=== PATIENT | male | born 1970 | race Caucasian/White ===

== ENCOUNTER 2017-10-12 12:43 | Emergency (ER) | payer OTHER ==
[~2017-10-12] VITALS: Ht 177.8 cm; Wt 85.3 kg
[~2017-10-12 12:43] MED LIST: AUGMENTIN 875 M1 TAB PO; BACTRIM DS 8001 TA1 PO; CLINDAMYCIN HC300 MG PO; DAYPRO600 M1 PO; Fioricet 325 MG1 TAB PO; HYDROCODONE BIT1 T11 PO; KEFLEX500 MG PO; MEDROL DOSEPAK4 MG PO; Motrin,Rufen800 MG PO; NORCO 5-325 TA1 EACH PO; ROBAXIN750 MG PO; TRAMADOL HCL50 MG PO; VICODIN 500 MG-1 TAB PO
[2017-10-12] MEDS ORDERED: AUGMENTIN 875-875 MG PO (21:26)
== END 2017-10-12 12:49 | disposition home or self-care (01) ==
LOC: ED 12:43
DX: S51.851A Open bite of right forearm, initial encounter (principal); W50.3XXA Accidental bite by another person, initial encounter; Y93.89 Activity, other specified; Y92.89 Other specified places as the place of occurrence of the external cause; Y99.9 Unspecified external cause status

== ENCOUNTER 2017-10-12 21:01 | Emergency (ER) | payer OTHER ==
[~2017-10-12] VITALS: Ht 177.8 cm; Wt 85.3 kg
[2017-10-12] MEDS ORDERED: AUGMENTIN 875-875 MG PO (21:26)
[2017-10-14 07:09] LABS: HEPATITIS B SURFACE AG Negative (Negative); HEPATITIS C VIRUS ANTIBODY <0.1 s/co (0.0-0.9)
[2017-10-14 09:06] LABS: HIV 1+2 AB + HIV1 P24 AG Non Reactive (Non Reactive)
== END 2017-10-12 21:40 | disposition home or self-care (01) ==
LOC: ED 21:01
PROVIDERS: Student in an Organized Health Care Education/Training Program
DX: S51.851A Open bite of right forearm, initial encounter (principal); W50.3XXA Accidental bite by another person, initial encounter; Y93.89 Activity, other specified; Y92.89 Other specified places as the place of occurrence of the external cause; Y99.9 Unspecified external cause status

== ENCOUNTER 2018-05-05 12:15 | Emergency (ER) | payer OTHER ==
[~2018-05-05] VITALS: Ht 154.9 cm; Wt 87.1 kg
[~2018-05-05 12:15] MED LIST changes: +AUGMENTIN 875-875 MG PO
[2018-05-05] MEDS ORDERED: ACULAR 0.5%3 ML OPH (13:06)
== END 2018-05-05 13:13 | disposition home or self-care (01) ==
LOC: ED 12:15
DX: H57.89 Other specified disorders of eye and adnexa (principal); H57.13 Ocular pain, bilateral; H53.8 Other visual disturbances; X03.8XXA Other exposure to controlled fire, not in building or structure, initial encounter; Y93.89 Activity, other specified; Y92.89 Other specified places as the place of occurrence of the external cause; Y99.8 Other external cause status

== ENCOUNTER 2018-11-03 12:33 | Emergency (ER) | payer OTHER ==
[~2018-11-03] VITALS: Wt 87.1 kg
[~2018-11-03 12:33] MED LIST changes: +ACULAR 0.5%3 ML OPH
[2018-11-03] MEDS ORDERED: LIDEX 0.05% CRE15 GM T (12:50)
[2018-11-03] MEDS ORDERED: PREDNISONE20 M1 PO (12:50)
[2018-11-08] MEDS ORDERED: ALA-CORT28.4 GM T (22:05)
== END 2018-11-03 12:57 | disposition home or self-care (01) ==
LOC: ED 12:33
DX: L25.9 Unspecified contact dermatitis, unspecified cause (principal); Z79.2 Long term (current) use of antibiotics; Z79.899 Other long term (current) drug therapy

== ENCOUNTER 2019-02-10 15:53 | Inpatient (IN) | payer OTHER ==
[~2019-02-10] VITALS: Ht 180.3 cm; Wt 88.5 kg
[2019-02-10 15:53] VITALS: BP 138/71
[~2019-02-10 15:53] MED LIST changes: +ALA-CORT28.4 GM T; +LIDEX 0.05% CRE15 GM T; +PREDNISONE20 M1 PO
[2019-02-10 17:23] LABS: BILIRUBIN NEGATIVE (NEGATIVE); BLOOD NEGATIVE (NEGATIVE); CLARITY CLEAR (CLEAR); COLOR YELLOW (YELLOW); GLUCOSE NEGATIVE (NEGATIVE); KETONE NEGATIVE (NEGATIVE); LEUKO ESTERASE NEGATIVE (NEGATIVE); NITRITE NEGATIVE (NEGATIVE); SPECIFIC GRAVITY 1.025 (1.005-1.030); UROBILINOGEN 0.2 E.U./dl (0.2-1.0)
[2019-02-10 17:26] LABS: BASO % 0.1 % (0.0-1.0); EOS % 0.1 % (1.0-4.0); HEMOGLOBIN 16.8 g/dl (14.0-18.0); LYMPH # 2.4 10*3/uL (1.3-4.4); LYMPH % 15.2 % (27.0-41.0); MEAN CELL VOLUME 91.4 fl (80.0-94.0); MEAN CORPUSCULAR HGB 30.7 pg (27.0-31.0); MEAN CORPUSCULAR HGB CONC 33.6 g/dl (33.0-37.0); MEAN PLATELET VOLUME 10.9 fl (9.6-12.3); MONO # 1.1 10*3/uL (0.1-1.0); MONO % 6.8 % (3.0-9.0); NEUT # 12.1 10*3/uL (2.3-7.9); NEUT % 77.2 % (47.0-73.0); PLATELET COUNT AUTOMATED 338 10*3/uL (130-400); RED BLOOD COUNT 5.47 10*6/uL (4.50-5.90); RED CELL DISTRI WIDTH 12.6 % (0-14.5); WHITE BLOOD COUNT 15.7 10*3/uL (4.8-10.8)
[2019-02-10 17:29] LABS: ACT PARTIAL THROMBO TIME 25.6 SECONDS (20.0-32.1); INTERNATIONAL NORM RATIO 0.9 (2.0-3.5)
--- NOTE | 2019-02-10 17:30 | NUR ---
PT STATES THAT THE MEDICATION HAS IMPROVED HIS PAIN SLIGHTLY AT THIS TIME. BED IS IN LOW POSITION. WILL CONTINUE TO MONITOR.
[2019-02-10 17:34] LABS: ALBUMIN 3.9 gm/dl (3.1-4.5); ALKALINE PHOSPHATASE 74 U/L (45-117); BUN 18 mg/dl (7-24); CHLORIDE 110 mmol/L (98-107); CREATININE 0.96 mg/dL (0.70-1.30); SGOT/AST 12 IU/L (3-35); SGPT/ALT 24 U/L (12-78); SODIUM 140 mmol/L (136-145); TOTAL PROTEIN 7.3 gm/dL (6.4-8.2)
[2019-02-10 17:48] LABS: LIPASE 1803 U/L (73-393); TROPONIN I < 0.015 ng/ml (<0.045)
[2019-02-10 17:51] VITALS: BP 118/64
--- NOTE | 2019-02-10 17:51 | NUR ---
PT VS ARE STABLE AT THIS TIME. THE MEDICATION HAS TAKEN THE "EDGE" AWAY. PT IS DRINKING FOR HIS CT. BED IS IN LOW POSITION. CALL ALBA WITHIN REACH. WILL CONTINUE TO MONITOR.
[2019-02-10 17:53] LABS: BACTERIA TRACE; MUCOUS 2+; WBC 0-2 wbc/hpf (0-5)
--- NOTE | 2019-02-10 18:47 | NUR ---
PT STATES THAT HE IS FEELING IMPROVED AT THIS TIME. WE ARE WAITING FOR PT TO GO TO CT.
--- NOTE | 2019-02-10 19:18 | NUR ---
PT TO CT AT THIS TIME.
[2019-02-10 20:24] VITALS: BP 126/55
--- NOTE | 2019-02-10 20:28 | NUR ---
PT RESTING IN BED UNDER WARM BLANKET. NO COMPLAINTS AT THIS TIME. BED IN LOW POSITION CALL ALBA IS WITHIN REACH. SIDE RAILS UP. WILL CONTINUE TO MONITOR. PENDING CT RESULTS.
[2019-02-10 21:12] VITALS: BP 144/76
--- NOTE | 2019-02-10 21:12 | NUR ---
A 48, admitted to 5E, under the services of JORDAN Ovalles MD with a diagnosis of PANCREATITIS. Chief complaint is N/V, EPIGASTRIC PAIN. Patient arrived via stretcher from ER. Monitor applied. Initial assessment completed. Vital signs taken and recorded. JORDAN OVALLES MD notified of admission to the unit. Orders received. See assessment for past medical history, medications and allergies. Patient and/or family oriented to unit. Clothing/patient valuable form completed. ALONZO COLLINS
--- NOTE | 2019-02-10 23:05 | NUR ---
PATIENT STATES PRESCRIBED MEDS FOR BIPOLAR DISORDER BUT DOES NOT TAKE THEM. DENIES ANY OTHER HOME MEDICATIONS.
--- NOTE | 2019-02-10 23:05 | NUR ---
FLU VACCINE REC'D ON THIS DATE.
[2019-02-11] VITALS: BP 103/69
--- NOTE | 2019-02-11 02:00 | NUR ---
PATIENT RESTING ON BACK, DENIES NEEDS AT THIS TIME. PAIN IS MANAGED, DENIES ANY N/V. IVF INFUSING PER ORDERS. BED IN LOWEST LOCKED POS, CALL LIGHT WITHIN REACH, SIDE RAILS UP X2.
[2019-02-11 06:38] LABS: BASO % 0.1 % (0.0-1.0); HEMATOCRIT 48.2 % (42.0-52.0); HEMOGLOBIN 15.7 g/dl (14.0-18.0); LYMPH % 17.9 % (27.0-41.0); MEAN CORPUSCULAR HGB 31.2 pg (27.0-31.0); MEAN CORPUSCULAR HGB CONC 32.6 g/dl (33.0-37.0); MEAN PLATELET VOLUME 11.2 fl (9.6-12.3); MONO # 1.2 10*3/uL (0.1-1.0); MONO % 6.9 % (3.0-9.0); NEUT # 12.5 10*3/uL (2.3-7.9); NEUT % 74.5 % (47.0-73.0); PLATELET COUNT AUTOMATED 309 10*3/uL (130-400); RED BLOOD COUNT 5.04 10*6/uL (4.50-5.90); WHITE BLOOD COUNT 16.8 10*3/uL (4.8-10.8)
[2019-02-11 06:50] LABS: ALBUMIN 3.6 gm/dl (3.1-4.5); BUN 14 mg/dl (7-24); CHLORIDE 109 mmol/L (98-107); CREATININE 0.82 mg/dL (0.70-1.30); LIPASE 931 U/L (73-393); POTASSIUM 4.3 mmol/L (3.5-5.1); SGOT/AST 8 IU/L (3-35); SGPT/ALT 22 U/L (12-78); SODIUM 140 mmol/L (136-145)
[2019-02-11 06:54] LABS: ALKALINE PHOSPHATASE 69 U/L (45-117); CHOLESTEROL 170 mg/dL (<200); HDL CHOLESTEROL 31 mg/dl (40-60); LDL CHOLESTEROL 106 mg/dL (9-159); PHOSPHOROUS 3.5 mg/dL (2.5-4.9); TOTAL PROTEIN 6.6 gm/dL (6.4-8.2); TRIGLYCERIDES 165 mg/dl (<150); VLDL CHOLESTEROL 33 mg/dL (6-40)
[2019-02-11 06:59] LABS: MEAN CELL VOLUME 95.6 fl (80.0-94.0)
[2019-02-11 08:00] VITALS: BP 100/62
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
--- NOTE | 2019-02-11 09:53 | NUR ---
ATTEMPTED TO CALL DR. LEONARD FOR NOTIFICATION OF CONSULT. NO ANSWER LEFT MESSAGE ON DR. LEONARD CELL THAT HE HAD A NEW CONSULT, ASKED HIM TO CALL 5E TO OBTAIN DETAILS OF CONSULT. NO SENSITIVE INFORMATION WAS LEFT ON MESSAGE JUST THAT THERE WAS A NEW CONSULT. JORGE NIX
--- NOTE | 2019-02-11 12:30 | NUR ---
Dr. Francois notified of consult.
--- NOTE | 2019-02-11 15:48 | NUR ---
Pt medicated with morphine for abdominal cramping and pain. Medicated with zofran iv per prn order for complaints of nausea.
[2019-02-11 16:00] VITALS: BP 115/72
--- NOTE | 2019-02-11 16:45 | NUR ---
States that medication was effective.
--- NOTE | 2019-02-11 18:35 | NUR ---
Dr. Francois in and examined pt. Explained again to pt that due to elevated lipase that he is not allowed to have anything at this time to eat or drink. Explained to pt that this is treatment and that he is also receiving ivf. Notified that pt will have labs rechecked in AM and that they will go from there. Pt verbalized understanding. Pt also c/o testicular pain. States he was treated in past for this by Dr. Babcock. Dr. Francois examined pt for this as well. States to order testicular us to r/o hydrocele.
[2019-02-11 20:00] VITALS: BP 117/65
[2019-02-12] VITALS: BP 109/62
[2019-02-12 06:24] LABS: BASO % 0.1 % (0.0-1.0); EOS % 0.1 % (1.0-4.0); HEMATOCRIT 45.4 % (42.0-52.0); HEMOGLOBIN 15.2 g/dl (14.0-18.0); LYMPH # 2.8 10*3/uL (1.3-4.4); MEAN CORPUSCULAR HGB 31.8 pg (27.0-31.0); MEAN CORPUSCULAR HGB CONC 33.5 g/dl (33.0-37.0); MONO % 7.2 % (3.0-9.0); NEUT # 9.5 10*3/uL (2.3-7.9); NEUT % 71.2 % (47.0-73.0); PLATELET COUNT AUTOMATED 264 10*3/uL (130-400); RED BLOOD COUNT 4.78 10*6/uL (4.50-5.90); RED CELL DISTRI WIDTH 12.6 % (0-14.5); WHITE BLOOD COUNT 13.4 10*3/uL (4.8-10.8)
[2019-02-12 06:47] LABS: ALBUMIN 3.4 gm/dl (3.1-4.5); ALKALINE PHOSPHATASE 62 U/L (45-117); BUN 17 mg/dl (7-24); CHLORIDE 111 mmol/L (98-107); CREATININE 0.79 mg/dL (0.70-1.30); LIPASE 80 U/L (73-393); POTASSIUM 4.2 mmol/L (3.5-5.1); SGOT/AST 5 IU/L (3-35); SGPT/ALT 20 U/L (12-78); SODIUM 141 mmol/L (136-145); TOTAL PROTEIN 6.4 gm/dL (6.4-8.2)
[2019-02-12 12:00] VITALS: BP 120/67
--- NOTE | 2019-02-12 12:35 | NUR ---
States that morphine and zofran given earlier was effective.
[2019-02-12 16:00] VITALS: BP 113/62
--- NOTE | 2019-02-12 16:09 | NUR ---
Pt c/o heartburn and indigestion after clear liquids. Denies nausea or pain at this time. Asking if the Dr will be in today.
--- NOTE | 2019-02-12 16:13 | NUR ---
Notified Dr. Mohamud of pt c/o indigestion and heart burn after clear liquids. Order received for protonix iv. Pt had also asked if Dr. Mohamud would be in to see him today. I notified Dr. Mohamud of this and Dr. Mohamud states he will be in later this evening.
--- NOTE | 2019-02-12 16:32 | NUR ---
Notified pt of new orders for protonix and given at this time. Notified pt that Dr. Mohamud stated to me that he will be in later this evening.
--- NOTE | 2019-02-12 17:12 | NUR ---
Pt up ambulatory in hallways.
--- NOTE | 2019-02-12 18:43 | NUR ---
IVF rate decreased to 100 cc/hr.
[2019-02-12 20:00] VITALS: BP 118/79; BP 120/78
[2019-02-13] VITALS: BP 127/71
--- NOTE | 2019-02-13 01:50 | NUR ---
PATIENT CALLED OUT. IV LEAKING. IV IN RIGHT AC DISCONTINUED.
--- NOTE | 2019-02-13 02:00 | NUR ---
IV started left forearm with #22 protective cath after 1 attempts. Site prepped with Chloroprep. Sterile dressing applied. Patient tolerated procedure well. IV infusing at 10O cc/hr. HEMALATHA MOSQUERA
--- NOTE | 2019-02-13 02:25 | NUR ---
IV IN RIGHT ARM INFILTRATED. REMOVED AND RESTARTED.
--- NOTE | 2019-02-13 02:33 | NUR ---
24 HR chart check completed.
[2019-02-13 06:51] LABS: BASO % 0.2 % (0.0-1.0); EOS % 0.1 % (1.0-4.0); HEMATOCRIT 46.4 % (42.0-52.0); HEMOGLOBIN 15.6 g/dl (14.0-18.0); LYMPH # 2.9 10*3/uL (1.3-4.4); LYMPH % 21.2 % (27.0-41.0); MEAN CELL VOLUME 93.4 fl (80.0-94.0); MEAN CORPUSCULAR HGB 31.4 pg (27.0-31.0); MEAN CORPUSCULAR HGB CONC 33.6 g/dl (33.0-37.0); MEAN PLATELET VOLUME 11.4 fl (9.6-12.3); MONO # 1.3 10*3/uL (0.1-1.0); MONO % 9.1 % (3.0-9.0); NEUT # 9.6 10*3/uL (2.3-7.9); NEUT % 68.9 % (47.0-73.0); PLATELET COUNT AUTOMATED 288 10*3/uL (130-400); RED BLOOD COUNT 4.97 10*6/uL (4.50-5.90); RED CELL DISTRI WIDTH 12.4 % (0-14.5); WHITE BLOOD COUNT 13.9 10*3/uL (4.8-10.8)
[2019-02-13 07:00] LABS: ALBUMIN 3.6 gm/dl (3.1-4.5); ALKALINE PHOSPHATASE 67 U/L (45-117); BUN 16 mg/dl (7-24); CHLORIDE 109 mmol/L (98-107); CREATININE 0.89 mg/dL (0.70-1.30); POTASSIUM 3.9 mmol/L (3.5-5.1); SGOT/AST 20 IU/L (3-35); SGPT/ALT 40 U/L (12-78); SODIUM 139 mmol/L (136-145); TOTAL PROTEIN 6.8 gm/dL (6.4-8.2)
--- NOTE | 2019-02-13 08:00 | NUR ---
PT SITTING UP IN BED. RESP-EASY AND REGULAR. NO C/O AT THIS TIME. IVF INFUSING WITH NO PROBLEM. CALL LIGHT IN REACH. SEE SHIFT ASSESSMENT.
--- NOTE | 2019-02-13 08:30 | NUR ---
DR. BELLO ON FLOOR TO SEE PT. AWARE PT ORTHOSTATIC BP THAT WAS POSITIVE. PT C/O DIZZINESS WITH MOVEMENT. CALL LIGHT IN REACH.
--- NOTE | 2019-02-13 11:42 | NUR ---
CALLED DR. GUAMAN, PT REQUESTING NICOTROL INHALER AND ALSO WANTING TO HAVE REGULAR DIET. TOLERATED FULL LIQUID WITH NO PROBLEM. ORDERS TAKEN AND REVIEWED.
[2019-02-13 12:00] VITALS: BP 120/71
[2019-02-13] MEDS ORDERED: PROTONIX40 M1 IV (13:03)
--- NOTE | 2019-02-13 13:25 | NUR ---
CALLED DR. GUAAMN MADE AWARE PROTONIX RX THAT WENT TO PHARMACY WAS IV. HE STATES HE TALKED WITH PHARMACY ALREADY AND TOOK CARE OF IT.
--- NOTE | 2019-02-13 13:36 | NUR ---
Discharge instructions reviewed with patient/family. Patient receptive and verbalizes understanding. Follow-up care arranged. Written instructions given to patient/family. HEPLOCK REMOVED 2X2 APPLIED. HOLTER MONITOR REMOVED. PT AMBULATORY OFF THE FLOOR FOR DISCHARGE. SERENA RING
== END 2019-02-13 13:45 | disposition home or self-care (01) | DRG 282 ==
LOC: ED 15:53 → 5E 20:37 → EDHOLD 20:37 → 5E 21:01
PROVIDERS: Internal Medicine; Nurse Practitioner Family; ADMIT Internal Medicine
DX: K85.90 Acute pancreatitis without necrosis or infection, unspecified (principal); F41.9 Anxiety disorder, unspecified; D72.829 Elevated white blood cell count, unspecified; E78.1 Pure hyperglyceridemia; E83.41 Hypermagnesemia; F31.9 Bipolar disorder, unspecified; E87.8 Other disorders of electrolyte and fluid balance, not elsewhere classified; N50.819 Testicular pain, unspecified; R00.1 Bradycardia, unspecified; F17.200 Nicotine dependence, unspecified, uncomplicated; Z83.3 Family history of diabetes mellitus; Z71.6 Tobacco abuse counseling

== ENCOUNTER → 2019-05-05 | Outpatient (CLI) | payer OTHER ==
[~2019-05-05] MED LIST changes: +PROTONIX40 M1 IV
== END | disposition home or self-care (01) ==
LOC: US 10:23
DX: K76.0 Fatty (change of) liver, not elsewhere classified (principal)

== ENCOUNTER 2019-06-09 12:53 | Emergency (ER) | payer OTHER ==
[~2019-06-09] VITALS: Ht 177.8 cm; Wt 89.8 kg
[2019-06-09 14:15] LABS: HEMATOCRIT 51.1 % (42.0-52.0); HEMOGLOBIN 17.1 g/dl (14.0-18.0); MEAN CELL VOLUME 93.9 fl (80.0-94.0); MEAN CORPUSCULAR HGB 31.4 pg (27.0-31.0); MEAN CORPUSCULAR HGB CONC 33.5 g/dl (33.0-37.0); PLATELET COUNT AUTOMATED 264 10*3/uL (130-400); RED BLOOD COUNT 5.44 10*6/uL (4.50-5.90); RED CELL DISTRI WIDTH 12.5 % (0-14.5); WHITE BLOOD COUNT 11.2 10*3/uL (4.8-10.8)
[2019-06-09 14:26] LABS: ACT PARTIAL THROMBO TIME 28.5 SECONDS (20.0-32.1); INTERNATIONAL NORM RATIO 0.9 (2.0-3.5)
[2019-06-09 14:30] LABS: ALBUMIN 4.2 gm/dl (3.1-4.5); ALKALINE PHOSPHATASE 101 U/L (45-117); BUN 9 mg/dl (7-24); CHLORIDE 106 mmol/L (98-107); CREATININE 0.98 mg/dL (0.70-1.30); LIPASE 138 U/L (73-393); POTASSIUM 3.7 mmol/L (3.5-5.1); SGOT/AST 11 IU/L (3-35); SGPT/ALT 23 U/L (12-78); SODIUM 139 mmol/L (136-145); TOTAL PROTEIN 7.8 gm/dL (6.4-8.2)
[2019-06-09 14:31] LABS: TROPONIN I < 0.015 ng/ml (<0.045)
[2019-06-09 14:35] LABS: BASOPHILS 1 % (0-1); PLATELET SUFFICIENCY NORMAL (NORMAL); TOTAL CELLS COUNTED 100 #CELLS
[2019-06-09 14:36] LABS: BURR CELLS FEW
[2019-06-09 16:12] LABS: BILIRUBIN NEGATIVE (NEGATIVE); BLOOD NEGATIVE (NEGATIVE); CLARITY CLEAR (CLEAR); COLOR YELLOW (YELLOW); GLUCOSE NEGATIVE (NEGATIVE); KETONE NEGATIVE (NEGATIVE); LEUKO ESTERASE NEGATIVE (NEGATIVE); NITRITE NEGATIVE (NEGATIVE); SPECIFIC GRAVITY 1.005 (1.005-1.030); UROBILINOGEN 0.2 E.U./dl (0.2-1.0)
[2019-06-09 16:13] LABS: EPITHELIAL CELLS 0-2
[2019-06-09] MEDS ORDERED: PREDNISONE50 MG PO (16:35)
[2019-06-09] MEDS ORDERED: PROVENTIL HFA6.7 GM INH (16:35)
[2019-06-09] MEDS ORDERED: MUCINEX1200 M1 PO (16:35)
[2019-06-09] MEDS ORDERED: TESSALON PERLE100 MG PO (16:35)
[2019-06-09] MEDS ORDERED: DOXYCYCLINE100 M3 PO (16:35)
== END 2019-06-09 16:42 | disposition home or self-care (01) ==
LOC: ED 12:53
PROVIDERS: Nurse Practitioner Family
DX: J20.9 Acute bronchitis, unspecified (principal); R11.2 Nausea with vomiting, unspecified; F17.200 Nicotine dependence, unspecified, uncomplicated

== ENCOUNTER 2019-06-13 19:43 | Emergency (ER) | payer OTHER ==
[~2019-06-13] VITALS: Ht 182.8 cm; Wt 86.2 kg
[~2019-06-13 19:43] MED LIST changes: +DOXYCYCLINE100 M3 PO; +MUCINEX1200 M1 PO; +PREDNISONE50 MG PO; +PROVENTIL HFA6.7 GM INH; +TESSALON PERLE100 MG PO
[2019-06-13] MEDS ORDERED: PREDNISONE20 M1 PO (20:10)
[2019-06-13] MEDS ORDERED: CEPHALEXIN500 M1 PO (20:10)
== END 2019-06-13 20:28 | disposition home or self-care (01) ==
LOC: ED 19:43
DX: L23.7 Allergic contact dermatitis due to plants, except food (principal)

== ENCOUNTER 2019-06-19 10:43 | Emergency (ER) | payer OTHER ==
[~2019-06-19] VITALS: Ht 180.3 cm; Wt 86.2 kg
[~2019-06-19 10:43] MED LIST changes: +CEPHALEXIN500 M1 PO
[2019-06-19] MEDS ORDERED: PREDNISONE10 MG PO (11:28)
== END 2019-06-19 11:48 | disposition home or self-care (01) ==
LOC: ED 10:43
DX: L23.9 Allergic contact dermatitis, unspecified cause (principal); Z79.2 Long term (current) use of antibiotics; Z79.899 Other long term (current) drug therapy

== ENCOUNTER 2019-09-29 18:29 | Emergency (ER) | payer OTHER ==
[~2019-09-29] VITALS: Ht 180.3 cm; Wt 81.6 kg
[~2019-09-29 18:29] MED LIST changes: +PREDNISONE10 MG PO
[2019-09-29 19:04] LABS: BASO # 0.1 10*3/uL (0.0-0.1); EOS # 0.2 10*3/uL (0.0-0.4); HEMATOCRIT 48.2 % (42.0-52.0); LYMPH # 4.5 10*3/uL (1.3-4.4); LYMPH % 38.9 % (27.0-41.0); MEAN CELL VOLUME 92.9 fl (80.0-94.0); MEAN CORPUSCULAR HGB 30.8 pg (27.0-31.0); MEAN CORPUSCULAR HGB CONC 33.2 g/dl (33.0-37.0); MEAN PLATELET VOLUME 10.7 fl (9.6-12.3); MONO % 8.5 % (3.0-9.0); NEUT # 5.7 10*3/uL (2.3-7.9); NEUT % 49.4 % (47.0-73.0); PLATELET COUNT AUTOMATED 310 10*3/uL (130-400); RED BLOOD COUNT 5.19 10*6/uL (4.50-5.90); RED CELL DISTRI WIDTH 12.6 % (0-14.5); WHITE BLOOD COUNT 11.5 10*3/uL (4.8-10.8)
[2019-09-29 19:19] LABS: ALBUMIN 3.9 gm/dl (3.1-4.5); ALKALINE PHOSPHATASE 86 U/L (45-117); BUN 15 mg/dl (7-24); CHLORIDE 108 mmol/L (98-107); LIPASE 71 U/L (73-393); POTASSIUM 3.7 mmol/L (3.5-5.1); SGOT/AST 14 IU/L (3-35); SGPT/ALT 24 U/L (12-78); SODIUM 140 mmol/L (136-145); TOTAL PROTEIN 7.3 gm/dL (6.4-8.2)
[2019-09-29 19:23] LABS: ETHYL ALCOHOL < 3.0 mg/dl (<3); TROPONIN I < 0.015 ng/ml (<0.045)
[2019-09-29 20:12] LABS: URINE AMPHETAMINES < 1000 (1000ng/ml); URINE BARBITURATES < 200 (200ng/ml); URINE BENZODIAZEPINES < 200 (200ng/ml); URINE CANNABINOIDS (THC) > 50 (50ng/ml); URINE COCAINE < 300 (300ng/ml); URINE METHADONE < 300 (300ng/ml); URINE OPIATES < 300 (300ng/ml)
[2019-09-29 20:14] LABS: URINE PHENCYCLIDINE < 25 (25ng/ml)
[2019-09-29] MEDS ORDERED: ACID REDUCER20 MG PO (22:18)
== END 2019-09-29 22:20 | disposition home or self-care (01) ==
LOC: ED 18:29
PROVIDERS: Physician Assistant
DX: J03.90 Acute tonsillitis, unspecified (principal); R10.13 Epigastric pain; R11.10 Vomiting, unspecified; F17.200 Nicotine dependence, unspecified, uncomplicated

== ENCOUNTER 2019-10-17 12:08 | Emergency (ER) | payer OTHER ==
[~2019-10-17] VITALS: Wt 86.2 kg
[~2019-10-17 12:08] MED LIST changes: +ACID REDUCER20 MG PO
[2019-10-17] MEDS ORDERED: PERCOCET 5-3251 EACH PO (14:52)
[2019-10-17] MEDS ORDERED: CYCLOBENZAPRINE10 MG PO (14:52)
[2019-10-17] MEDS ORDERED: PREDNISONE20 M1 PO (14:52)
[2019-10-17] MEDS ORDERED: IBU800 MG PO (14:52)
== END 2019-10-17 14:58 | disposition home or self-care (01) ==
LOC: ED 12:08
DX: S39.012A Strain of muscle, fascia and tendon of lower back, initial encounter (principal); M54.42 Lumbago with sciatica, left side; Z87.891 Personal history of nicotine dependence; X50.9XXA Other and unspecified overexertion or strenuous movements or postures, initial encounter; Y93.89 Activity, other specified; Y92.89 Other specified places as the place of occurrence of the external cause; Y99.8 Other external cause status

== ENCOUNTER 2020-01-12 17:32 | Emergency (ER) | payer OTHER ==
[~2020-01-12] VITALS: Ht 180.3 cm; Wt 90.7 kg
[~2020-01-12 17:32] MED LIST changes: +CYCLOBENZAPRINE10 MG PO; +IBU800 MG PO; +PERCOCET 5-3251 EACH PO
[2020-01-12] MEDS ORDERED: IBU800 MG PO (17:52)
[2020-01-12] MEDS ORDERED: AMOXICILLIN500 M3 PO (17:52)
== END 2020-01-12 18:02 | disposition home or self-care (01) ==
LOC: ED 17:32
DX: I88.9 Nonspecific lymphadenitis, unspecified (principal)

== ENCOUNTER → 2020-01-26 | Outpatient (CLI) | payer OTHER ==
[~2020-01-26] MED LIST changes: +AMOXICILLIN500 M3 PO
--- NOTE | 2020-01-26 09:42 | NUR ---
SPEECH PATHOLOGY Outpatient MBS completed as per orders to view the oral and pharyngeal phases of the swallow. Patient was alert, cooperative and reported that for about the past year, he has had the sensation that food is sticking in his throat, causing him to vomit it back up. He stated that he was recently placed on a steroid and antibiotic for a throat infection, but that this problem had been occurring even prior to the infection. No significant medical history was reported. Patient stated that it feels like his throat is swollen on both sides. Respiratory status was WNL. Oral exam revealed edentulous status but lingual/labial/buccal skills WNL in terms of strength, ROM and coordination. Patient was assessed with puree, solids and thin liquid. Oral and pharyngeal swallowing skills were WNL. Due to the symptoms and difficulties he is presenting with, recommend an ENT consult. Recommend he remain on present diet with use of universal safe swallow precautions. Results and nichole. were shared with the patient who verbalized understanding. Dictated report to follow. Thank you for this referral. OZIEL PATEL MSCCC-WOOD CARVING MACHINE OPERATOR
== END | disposition home or self-care (01) ==
LOC: RAD/SH 09:00
PROVIDERS: ATTEND Internal Medicine
DX: R13.10 Dysphagia, unspecified (principal)

== ENCOUNTER → 2020-10-15 | Outpatient (CLI) | payer OTHER | END | disposition home or self-care (01) | LOC: RAD 15:38 | PROVIDERS: ATTEND Family Medicine | DX: J44.9 Chronic obstructive pulmonary disease, unspecified (principal) ==

== ENCOUNTER 2020-11-14 21:21 | Emergency (ER) | payer OTHER | END 2020-11-14 21:40 | disposition home or self-care (01) | LOC: ED 21:21 | DX: L23.7 Allergic contact dermatitis due to plants, except food (principal) ==

== ENCOUNTER 2021-03-13 05:54 | Emergency (ER) | payer OTHER ==
[~2021-03-13] VITALS: Ht 180.3 cm; Wt 84.4 kg
[2021-03-13 08:00] LABS: BASO % 0.7 % (0.0-1.0); EOS # 0.1 10*3/uL (0.0-0.4); EOS % 0.9 % (1.0-4.0); HEMATOCRIT 49.2 % (42.0-52.0); LYMPH # 2.9 10*3/uL (1.3-4.4); MEAN CELL VOLUME 92.8 fl (80.0-94.0); MEAN CORPUSCULAR HGB 31.1 pg (27.0-31.0); MEAN CORPUSCULAR HGB CONC 33.5 g/dl (33.0-37.0); MEAN PLATELET VOLUME 10.9 fl (9.6-12.3); MONO # 0.7 10*3/uL (0.1-1.0); MONO % 12.4 % (3.0-9.0); NEUT # 2.1 10*3/uL (2.3-7.9); NEUT % 35.8 % (47.0-73.0); PLATELET COUNT AUTOMATED 196 10*3/uL (130-400); RED CELL DISTRI WIDTH 12.7 % (0-14.5); WHITE BLOOD COUNT 5.7 10*3/uL (4.8-10.8)
[2021-03-13 08:15] LABS: ALBUMIN 3.4 gm/dl (3.1-4.5); ALKALINE PHOSPHATASE 76 U/L (45-117); BUN 11 mg/dl (7-24); CHLORIDE 110 mmol/L (98-107); LIPASE 116 U/L (73-393); SGOT/AST 18 IU/L (3-35); SGPT/ALT 31 U/L (12-78); SODIUM 140 mmol/L (136-145)
[2021-03-13] MEDS ORDERED: PEPCID20 MG PO (10:30)
== END 2021-03-13 10:48 | disposition home or self-care (01) ==
LOC: ED 05:54
PROVIDERS: Emergency Medicine
DX: K29.00 Acute gastritis without bleeding (principal)

== ENCOUNTER → 2021-07-11 | Outpatient (CLI) | payer OTHER ==
[~2021-07-11] MED LIST changes: +PEPCID20 MG PO
== END | disposition home or self-care (01) ==
LOC: RAD 14:18
PROVIDERS: ATTEND Internal Medicine
DX: M51.37 Other intervertebral disc degeneration, lumbosacral region (principal)

== ENCOUNTER 2022-02-01 11:50 | Emergency (ER) | payer OTHER ==
[~2022-02-01] VITALS: Ht 180.3 cm; Wt 74.8 kg
[2022-02-01] MEDS ORDERED: MEDROL DOSEPAK4 MG PO (14:08)
== END 2022-02-01 14:28 | disposition home or self-care (01) ==
LOC: ED 11:50
DX: M54.12 Radiculopathy, cervical region (principal); F17.200 Nicotine dependence, unspecified, uncomplicated

== ENCOUNTER 2022-12-11 21:14 | Emergency (ER) | payer OTHER ==
[~2022-12-11] VITALS: Ht 177.8 cm; Wt 81.6 kg
[2022-12-11 22:01] LABS: BASO # 0.1 10*3/uL (0.0-0.1); BASO % 0.8 % (0.0-1.0); EOS # 0.3 10*3/uL (0.0-0.4); EOS % 2.5 % (1.0-4.0); HEMATOCRIT 45.6 % (42.0-52.0); LYMPH % 16.1 % (27.0-41.0); MEAN CELL VOLUME 93.3 fl (80.0-94.0); MEAN CORPUSCULAR HGB 31.7 pg (27.0-31.0); MEAN PLATELET VOLUME 10.6 fl (9.6-12.3); MONO # 0.9 10*3/uL (0.1-1.0); MONO % 7.1 % (3.0-9.0); NEUT # 9.2 10*3/uL (2.3-7.9); NEUT % 72.3 % (47.0-73.0); PLATELET COUNT AUTOMATED 257 10*3/uL (130-400); RED BLOOD COUNT 4.89 10*6/uL (4.50-5.90); RED CELL DISTRI WIDTH 12.8 % (0-14.5); WHITE BLOOD COUNT 12.7 10*3/uL (4.8-10.8)
[2022-12-11 22:12] LABS: ACT PARTIAL THROMBO TIME 28.6 SECONDS (20.0-32.1)
[2022-12-11 22:24] LABS: ALKALINE PHOSPHATASE 96 U/L (46-116); BUN 12 mg/dl (9-23); CHLORIDE 106 mmol/L (98-107); LIPASE 59 U/L (12-53); POTASSIUM 3.7 mmol/L (3.4-5.1); SGPT/ALT 15 U/L (10-49); TOTAL PROTEIN 6.8 gm/dL (6.0-8.0)
[2022-12-11] MEDS ORDERED: AMOX-CLAV 875-1 EACH PO (22:45)
== END 2022-12-11 23:14 | disposition home or self-care (01) ==
LOC: ED 21:14
PROVIDERS: Internal Medicine
DX: J02.8 Acute pharyngitis due to other specified organisms (principal); K21.9 Gastro-esophageal reflux disease without esophagitis; F17.200 Nicotine dependence, unspecified, uncomplicated; Z79.899 Other long term (current) drug therapy; Z98.890 Other specified postprocedural states

== ENCOUNTER 2022-12-24 11:31 | Emergency (ER) | payer OTHER ==
[~2022-12-24] VITALS: Ht 177.8 cm; Wt 84.4 kg
[~2022-12-24 11:31] MED LIST changes: +AMOX-CLAV 875-1 EACH PO
[2022-12-24 13:13] LABS: BASO # 0.1 10*3/uL (0.0-0.1); BASO % 0.9 % (0.0-1.0); EOS # 0.2 10*3/uL (0.0-0.4); EOS % 2.1 % (1.0-4.0); HEMATOCRIT 47.1 % (42.0-52.0); LYMPH # 4.6 10*3/uL (1.3-4.4); MEAN CELL VOLUME 91.3 fl (80.0-94.0); MEAN CORPUSCULAR HGB 31.4 pg (27.0-31.0); MEAN CORPUSCULAR HGB CONC 34.4 g/dl (33.0-37.0); MEAN PLATELET VOLUME 10.6 fl (9.6-12.3); MONO # 0.9 10*3/uL (0.1-1.0); MONO % 8.8 % (3.0-9.0); NEUT # 4.3 10*3/uL (2.3-7.9); NEUT % 42.9 % (47.0-73.0); PLATELET COUNT AUTOMATED 286 10*3/uL (130-400); RED BLOOD COUNT 5.16 10*6/uL (4.50-5.90); RED CELL DISTRI WIDTH 12.7 % (0-14.5); WHITE BLOOD COUNT 10.1 10*3/uL (4.8-10.8)
[2022-12-24 13:25] LABS: ACT PARTIAL THROMBO TIME 28.5 SECONDS (20.0-32.1)
[2022-12-24 13:38] LABS: ALKALINE PHOSPHATASE 91 U/L (46-116); BUN 8 mg/dl (9-23); CHLORIDE 108 mmol/L (98-107); LIPASE 48 U/L (12-53); POTASSIUM 4.1 mmol/L (3.4-5.1); SGPT/ALT 17 U/L (10-49); TOTAL PROTEIN 6.6 gm/dL (6.0-8.0)
[2022-12-24] MEDS ORDERED: CYCLOBENZAPRINE10 MG PO (15:37)
[2022-12-24] MEDS ORDERED: PERCOCET 5-3251 EACH PO (15:37)
== END 2022-12-24 15:42 | disposition home or self-care (01) ==
LOC: ED 11:31
PROVIDERS: Emergency Medicine
DX: S30.0XXA Contusion of lower back and pelvis, initial encounter (principal); F17.200 Nicotine dependence, unspecified, uncomplicated; Z98.890 Other specified postprocedural states; W28.XXXA Contact with powered lawn mower, initial encounter; Y93.I9 Activity, other involving external motion; Y92.89 Other specified places as the place of occurrence of the external cause; Y99.8 Other external cause status

== ENCOUNTER 2023-12-04 19:13 | Emergency (ER) | payer OTHER ==
[~2023-12-04] VITALS: Ht 177.8 cm; Wt 87.1 kg
[2023-12-04] MEDS ORDERED: methylPREDNISolone sod succ 125 MG VIAL IM ONE (19:30)
[2023-12-04] MEDS ORDERED: PREDNISONE20 M1 PO (19:35)
[2023-12-06] MEDS ORDERED: AMOX-CLAV 875-1 EACH PO (16:55)
== END 2023-12-04 19:45 | disposition home or self-care (01) ==
LOC: ED 19:13
DX: L23.7 Allergic contact dermatitis due to plants, except food (principal); F41.9 Anxiety disorder, unspecified; E78.00 Pure hypercholesterolemia, unspecified; E83.41 Hypermagnesemia; F17.200 Nicotine dependence, unspecified, uncomplicated; Z98.890 Other specified postprocedural states

== ENCOUNTER 2024-02-25 09:57 | Emergency (ER) | payer OTHER ==
[~2024-02-25] VITALS: Ht 177.8 cm; Wt 86.2 kg
[~2024-02-25 09:57] MED LIST changes: +VAZALORE81 MG PO
[2024-02-25] MEDS ORDERED: MORPHINE Sulfate 2 MG/ML SYR IV ONE (10:20)
[2024-02-25] MEDS ORDERED: Ketorolac Tromethamine 15 MG/ML VIAL IV ONE (10:20)
[2024-02-25] MEDS ORDERED: SODIUM CHLORIDE 0.9% 1,000 ML IV ONE (10:20)
[2024-02-25] MEDS ORDERED: Ondansetron Hydrochloride 4 MG/2 ML VIAL IV ONE (10:20)
[2024-02-25] MEDS ORDERED: IOHEXOL 300 MG/ML 100 ML VIAL IV ONE (10:25)
[2024-02-25 10:42] LABS: BASO # 0.1 10*3/uL (0.0-0.1); BASO % 1.1 % (0.0-1.0); EOS # 0.2 10*3/uL (0.0-0.4); EOS % 1.9 % (1.0-4.0); HEMATOCRIT 48.4 % (42.0-52.0); MEAN CORPUSCULAR HGB 30.8 pg (27.0-31.0); MEAN CORPUSCULAR HGB CONC 33.5 g/dl (33.0-37.0); MEAN PLATELET VOLUME 10.2 fl (9.6-12.3); MONO # 0.9 10*3/uL (0.1-1.0); MONO % 8.2 % (3.0-9.0); NEUT # 5.9 10*3/uL (2.3-7.9); PLATELET COUNT AUTOMATED 311 10*3/uL (130-400); RED BLOOD COUNT 5.26 10*6/uL (4.50-5.90); RED CELL DISTRI WIDTH 12.6 % (0-14.5); WHITE BLOOD COUNT 10.7 10*3/uL (4.8-10.8)
[2024-02-25 11:11] LABS: BUN 9 mg/dl (9-23); CHLORIDE 109 mmol/L (98-107); LIPASE 37 U/L (12-53)
[2024-02-25] MEDS ORDERED: MELOXICAM15 MG PO (15:08)
[2024-02-25] MEDS ORDERED: CYCLOBENZAPRINE10 MG PO (15:08)
== END 2024-02-25 15:37 | disposition home or self-care (01) ==
LOC: ED 09:57
PROVIDERS: Emergency Medicine
DX: S43.401A Unspecified sprain of right shoulder joint, initial encounter (principal); R10.13 Epigastric pain; R11.2 Nausea with vomiting, unspecified; F12.90 Cannabis use, unspecified, uncomplicated; F17.200 Nicotine dependence, unspecified, uncomplicated; Z98.890 Other specified postprocedural states; X50.0XXA Overexertion from strenuous movement or load, initial encounter; Y93.89 Activity, other specified; Y92.89 Other specified places as the place of occurrence of the external cause; Y99.8 Other external cause status

== ENCOUNTER 2024-06-06 17:46 | Observation (INO) | payer OTHER ==
[~2024-06-06] VITALS: Ht 177.8 cm; Wt 92.5 kg
[~2024-06-06 17:46] MED LIST changes: +MELOXICAM15 MG PO
[2024-06-06 19:47] VITALS: BP 128/72
[2024-06-06 20:57] LABS: HEMATOCRIT 47.3 % (42.0-52.0); MEAN CELL VOLUME 90.4 fl (80.0-94.0); MEAN CORPUSCULAR HGB 31.5 pg (27.0-31.0); MEAN CORPUSCULAR HGB CONC 34.9 g/dl (33.0-37.0); MEAN PLATELET VOLUME 10.5 fl (9.6-12.3); PLATELET COUNT AUTOMATED 329 10*3/uL (130-400); RED BLOOD COUNT 5.23 10*6/uL (4.50-5.90); RED CELL DISTRI WIDTH 12.8 % (0-14.5); WHITE BLOOD COUNT 12.6 10*3/uL (4.8-10.8)
[2024-06-06 20:58] LABS: MANUAL DIFF REFLEX YES
[2024-06-06 21:12] LABS: BUN 10 mg/dl (9-23); CHLORIDE 105 mmol/L (98-107); POTASSIUM 3.8 mmol/L (3.4-5.1)
[2024-06-06 21:38] LABS: BASOPHILS 2 % (0-1); PLATELET SUFFICIENCY NORMAL (NORMAL); TOTAL CELLS COUNTED 100 #CELLS
[2024-06-07] VITALS: BP 118/66
[2024-06-07 05:02] VITALS: BP 115/65
[2024-06-07] MEDS ORDERED: Regadenoson 0.4 MG/5 ML SYR IV ONE (05:23)
[2024-06-07 08:00] VITALS: BP 119/76
[2024-06-07] MEDS ORDERED: Cyclobenzaprine Hydrochlorid 10 MG TAB PO PRN (12:30)
== END 2024-06-07 15:00 | disposition home or self-care (01) ==
LOC: ED 17:46 → EDHOLD 21:27
PROVIDERS: Nurse Practitioner Family; ADMIT Internal Medicine; ATTEND Internal Medicine
DX: R07.89 Other chest pain (principal); J44.9 Chronic obstructive pulmonary disease, unspecified; F17.220 Nicotine dependence, chewing tobacco, uncomplicated; Z71.6 Tobacco abuse counseling; Z79.899 Other long term (current) drug therapy

== ENCOUNTER → 2024-12-23 | Outpatient (CLI) | payer OTHER | END | disposition home or self-care (01) | LOC: RAD 16:30 | PROVIDERS: ATTEND Internal Medicine | DX: M47.812 Spondylosis without myelopathy or radiculopathy, cervical region (principal); M25.511 Pain in right shoulder; M54.9 Dorsalgia, unspecified ==

== ENCOUNTER 2025-01-25 08:36 | Emergency (ER) | payer OTHER ==
[~2025-01-25] VITALS: Ht 177.8 cm; Wt 92.5 kg
[2025-01-25] MEDS ORDERED: CLINDAMYCIN HC300 MG PO (09:12)
[2025-01-25] MEDS ORDERED: TYLE3UD PO (09:13)
== END 2025-01-25 09:25 | disposition home or self-care (01) ==
LOC: ED 08:36
DX: K12.30 Oral mucositis (ulcerative), unspecified (principal); K11.20 Sialoadenitis, unspecified; F17.210 Nicotine dependence, cigarettes, uncomplicated; F12.90 Cannabis use, unspecified, uncomplicated